=== PATIENT | male | born 1995 | race Caucasian/White ===

== ENCOUNTER 2017-06-02 07:41 | Emergency (ER) | payer OTHER ==
[2017-06-02 07:49] VITALS: RESP 16
[2017-06-02] MEDS ORDERED: SODIUM CHLORIDE 0.9% 500 ML IV STA (08:04)
[2017-06-02 08:41] LABS: Basophils % (A) 0 %; CH 30.7; CHCM 33.4; Eosinophils # (A) 0.3 k/uL (0-0.7); Eosinophils % (A) 2 %; HCT 45.3 % (39.0-53.0); HDW 2.19; Luc # (Auto) 0.15; Luc % (Auto) 1; Lymphocytes # (A) 2.2 k/uL (1.0-4.8); Lymphocytes % (A) 19 %; MCH 30.6 pg (25.0-35.0); MCHC 33.1 g/dL (31.0-37.0); MCV 92.2 fL (80.0-100.0); Monocytes # (A) 0.6 k/uL (0-1.0); Monocytes % (A) 5 %; Neutrophils # (A) 8.3 k/uL (1.3-7.7); Neutrophils % (A) 72 %; RBC 4.91 m/uL (4.30-5.90); RDW 12.2 % (11.5-15.5); WBC 11.5 k/uL (3.8-10.6); WBC (Perox) 11.73
[2017-06-02 08:42] LABS: Appearance,Urine Clear (Clear); Bilirubin,Urine Negative (Negative); Glucose,Urine (UA) Negative (Negative); Ketones,Urine Negative (Negative); Leukocyte Esterase,Urine Negative (Negative); Nitrite,Urine Negative (Negative); PH, Urine 6.5 (5.0-8.0); Protein,Urine Negative (Negative); Specific Gravity,Urine 1.013 (1.001-1.035); UA Billing (MACRO vs. MICRO) CHEM; Urobilinogen,Urine <2.0 mg/dL (<2.0)
--- NOTE | 2017-06-02 08:45 | ED ---
Abdominal Pain HPI - General Chief Complaint: Abdominal Pain Stated Complaint: abd pain Time Seen by Provider: 06/02/17 08:03 Source: patient, RN notes reviewed Mode of arrival: ambulatory Limitations: no limitations - History of Present Illness Initial Comments: 22-year-old male presents emergency Department chief complaint right upper quadrant abdominal pain. Patient states that he was here last night secondary to pain but had a leave physical state for testing. Patient states the pain has been on and off for the last month states it is worsening and especially with certain foods. Patient states that the pain is in her right upper quadrant and is nonradiating. Patient states she does get nauseated from the pain and did have episode of vomiting. Patient denies fever, chills, diarrhea constipation. Denies a change in color all wounds. Denies any dysuria or hematuria. She denies any chest pain shortness of breath. - Related Data Previous Rx's Medication Instructions Recorded Hydrocodone/Acetaminophen [Mobile 1 tab PO Q6HR PRN #15 tab 06/02/17 5-325] Ondansetron Odt [Zofran Odt] 4 mg PO Q8HR PRN #10 tab 06/02/17 Allergies Allergy/AdvReac Type Severity Reaction Status Date / Time No Known Allergies Allergy Verified 06/02/17 07:54 Review of Systems ROS Statement: Those systems with pertinent positive or pertinent negative responses have been documented in the HPI. ROS Other: All systems not noted in ROS Statement are negative. Past Medical History Past Medical History: No Reported History History of Any Multi-Drug Resistant Organisms: None Reported Past Surgical History: Tonsillectomy Past Psychological History: No Psychological Hx Reported Smoking Status: Never smoker Past Alcohol Use History: Occasional Past Drug Use History: None Reported General Exam Limitations: no limitations General appearance: alert, in no apparent distress Head exam: Present: atraumatic, normocephalic, normal inspection Eye exam: Present: normal appearance, PERRL, EOMI. Absent: scleral icterus, conjunctival injection, periorbital swelling Respiratory exam: Present: normal lung sounds bilaterally. Absent: respiratory distress, wheezes, rales, rhonchi, stridor Cardiovascular Exam: Present: regular rate, normal rhythm, normal heart sounds. Absent: systolic murmur, diastolic murmur, rubs, gallop, clicks GI/Abdominal exam: Present: soft, tenderness (Right upper quadrant tenderness), normal bowel sounds. Absent: distended, guarding, rebound, rigid Back exam: Absent: CVA tenderness (R), CVA tenderness (L) Skin exam: Present: warm, dry, intact, normal color. Absent: rash Course Vital Signs 06/02/17 07:46 Temperature 98.7 F Pulse Rate 71 Respiratory 16 Rate Blood Pressure 144/81 O2 Sat by Pulse 96 Oximetry Medical Decision Making - Medical Decision Making 22-year-old male present emergency from for reported abdominal pain. Patient ultrasound does show enlarged color without any stones or signs of infection at this time. Patient most likely has dysfunctional gallbladder and will follow- up with on-call surgery Dr. Gonzalez return parameters were discussed. - Lab Data Result diagrams: 06/02/17 08:19 06/02/17 08:19 Lab Results 06/02/17 06/02/17 06/02/17 Range/Units 08:19 08:19 08:19 WBC 11.5 H (3.8-10.6) k/uL RBC 4.91 (4.30-5.90) m/uL Hgb 15.0 (13.0-17.5) gm/dL Hct 45.3 (39.0-53.0) % MCV 92.2 (80.0-100.0) fL MCH 30.6 (25.0-35.0) pg MCHC 33.1 (31.0-37.0) g/dL RDW 12.2 (11.5-15.5) % Plt Count 265 (150-450) k/uL Neutrophils % 72 % Lymphocytes % 19 % Monocytes % 5 % Eosinophils % 2 % Basophils % 0 % Neutrophils # 8.3 H (1.3-7.7) k/uL Lymphocytes # 2.2 (1.0-4.8) k/uL Monocytes # 0.6 (0-1.0) k/uL Eosinophils # 0.3 (0-0.7) k/uL Basophils # 0.0 (0-0.2) k/uL Sodium 141 (137-145) mmol/L Potassium 4.4 (3.5-5.1) mmol/L Chloride 104 (98-107) mmol/L Carbon Dioxide 24 (22-30) mmol/L Anion Gap 13 mmol/L BUN 15 (9-20) mg/dL Creatinine 0.70 (0.66-1.25) mg/dL Est GFR (MDRD) Af Amer >60 (>60 ml/min/1.73 sqM) Est GFR (MDRD) Non-Af >60 (>60 ml/min/1.73 sqM) Glucose 95 (74-99) mg/dL Calcium 10.0 (8.4-10.2) mg/dL Total Bilirubin 0.3 (0.2-1.3) mg/dL AST 24 (17-59) U/L ALT 33 (21-72) U/L Alkaline Phosphatase 80 (38-126) U/L Total Protein 7.6 (6.3-8.2) g/dL Albumin 4.8 (3.5-5.0) g/dL Amylase 56 (30-110) U/L Lipase 60 (23-300) U/L Urine Color Light Yellow Urine Appearance Clear (Clear) Urine pH 6.5 (5.0-8.0) Ur Specific [place] 1.013 (1.001-1.035) Urine Protein Negative (Negative) Urine Glucose (UA) Negative (Negative) Urine Ketones Negative (Negative) Urine Blood Negative (Negative) Urine Nitrite Negative (Negative) Urine Bilirubin Negative (Negative) Urine Urobilinogen <2.0 (<2.0) mg/dL Ur Leukocyte Esterase Negative (Negative) Disposition Clinical Impression: RUQ pain, Biliary colic symptom Disposition: HOME SELF-CARE Condition: Stable Instructions: Abdominal Pain (ED) Additional Instructions: Please return to the Emergency Department if symptoms worsen or any other concerns. Prescriptions: Hydrocodone/Acetaminophen [Mobile 5-325] 1 tab PO Q6HR PRN #15 tab PRN Reason: Pain Ondansetron Odt [Zofran Odt] 4 mg PO Q8HR PRN #10 tab PRN Reason: Nausea Referrals: None,Stated [Primary Care Provider] - 1-2 days Amena Gonzalez DO [Doctor of Osteopathic Medicine] - 1-2 days Time of Disposition: 10:18
[2017-06-02 08:54] LABS: ALT 33 U/L (21-72); AST 24 U/L (17-59); Alkaline Phosphatase 80 U/L (38-126); Amylase 56 U/L (30-110); Anion Gap 13 mmol/L; Blood Urea Nitrogen 15 mg/dL (9-20); Carbon Dioxide 24 mmol/L (22-30); Chloride 104 mmol/L (98-107); Glucose 95 mg/dL (74-99); Non-African American GFR(MDRD) >60 (>60 ml/min/1.73 sqM); Potassium 4.4 mmol/L (3.5-5.1); Sodium 141 mmol/L (137-145); Total Bilirubin 0.3 mg/dL (0.2-1.3); Total Protein 7.6 g/dL (6.3-8.2)
--- NOTE | 2017-06-02 09:52 | US ---
EXAMINATION TYPE: US abdomen limited DATE OF EXAM: 06/02/2017 COMPARISON: NONE CLINICAL HISTORY: 22-year-old male Pain. RUQ pain, NPO, [place] TECHNIQUE: Multiple sonographic images of the right upper quadrant are obtained. FINDINGS: Liver Length: 14.5 cm Gallbladder Wall: 0.2 cm CHD: 0.3 cm Right Kidney: 10.4 x 5.1 x 5.1 cm Pancreas: Suboptimal visualization of the pancreatic tail secondary to shadowing from bowel gas. Vis ualized portions show no gross abnormality. Liver: Normal size and homogeneous echotexture. Gallbladder: Upper limits of normal in size measuring 3.8 x 9.4 cm. No wall thickening, pericholecys tic fluid, or shadowing calculi. Evidence for sonographic Bailey's sign: neg CHD: wnl Right Kidney: No hydronephrosis IMPRESSION: Gallbladder is borderline distended likely due to fasting state. No ancillary findings of acute fred cystitis.
[2017-06-02 10:30] VITALS: BP 120/70; PULSE 78; TEMP 97.8
== END 2017-06-02 10:29 | disposition home or self-care (01) ==
LOC: EC 07:41
DX: R10.11 Right upper quadrant pain (principal); R11.2 Nausea with vomiting, unspecified
CPT/HCPCS: 36415; 76705; 80053; 81003; 82150; 83690; 85025; 96360; 99284